=== PATIENT | female | born 1965 | race Caucasian/White ===

== ENCOUNTER 2019-10-14 14:50 | Emergency (ER) | payer BC ==
--- OUTSIDE RECORDS SUMMARY | 2019-10-14 15:11 | XMS REPORT | Continuity of Care Document ---
:1965 External Reference #:[id number] Author Name Bennie Isaac PA (transmitted by agent of provider Skip Barragan) Address [address], [address] [place] [address] Care Team Providers Name Role Phone Joshua Brennan MD - Family Medicine Care Team Information Humidifier Operator [phone] Problems Active Problems Provider Date Chest pain Negin Pickens ANP Onset: 10/07/2011 Mixed hyperlipidemia Negin Pickens ANP Onset: 10/07/2011 [place] Vikram Ruvalcaba M.D. Onset: 10/26/2013 Obstructive sleep apnea syndrome Negin Pickens ANP Onset: 05/12/2016 Bradycardia, unspecified Negin Pickens ANP Onset: 05/12/2016 Essential hypertension Negin Pickens ANP Onset: 05/12/2016 Social History Type Date Description Comments Sex Unknown Cigarette Use Denies Tobacco Use Tobacco Use Start: Unknown Never Smoked Cigarettes Smoking Status Reviewed: 08/29/19 Never Smoked Cigarettes ETOH Use Rarely consumes alcohol Exercise Type/Frequency Does not exercise Allergies, Adverse Reactions, Alerts Active Allergies Reaction Severity Comments Date Sulfa Drugs 10/07/2011 Medications Active Medications SIG Qnty Indications Ordering Provider Date Aspirin Ec Lo-Dose po qd Unknown 81mg Tablets Atorvastatin Calcium 1 po qd 30tabs Unknown 20mg Tablets Nature Made D3 1 po qd 60caps Unknown 1000Iu Capsules Escitalopram Oxalate 1 po qd Joshua Brennan MD 10mg Tablets Irbesartan-Hydrochlorothiaz 1 daily Joshua Brennan MD bernie 150-12.5mg Tablets Immunizations Description No Information Available Vital Signs Date Vital Result Comment 08/29/2019 3:36pm BP Systolic Sitting Right Arm 128 mmHg BP Diastolic Sitting Right Arm 64 mmHg Heart Rate 72 /min Respiratory Rate 18 /min Height 62 inches 5'2" Weight 175.00 lb BMI (Body Mass Index) 32.0 kg/m2 BSA (Body Surface Area) 1.81 m2 [place] body weight in kilograms 50 kg O2 % BldC Oximetry 96 % Ora 03/07/2019 3:35pm BP Systolic 117 mmHg BP Diastolic 80 mmHg Heart Rate 80 /min Respiratory Rate 18 /min Height 62 inches 5'2" Weight 174.00 lb BMI (Body Mass Index) 31.8 kg/m2 BSA (Body Surface Area) 1.80 m2 [place] body weight in kilograms 50 kg O2 % BldC Oximetry 96 % Results Test Acquired Date Facility Test Result H/L Range Note Basic Metabolic 08/29/2019 [facility] Glucose 88 mg/dL Normal 74-106 1 [address] [place], [place] [id number] [phone] BUN 18 mg/dL Normal 7-18 Creatinine 0.9 mg/dL Normal 0.6-1.3 Glom Filtration Rate, Estimate >60 mL/min >60 If >60 mL/min >60 2 BUN/Creat 20.0 ratio Sodium 136 mmol/L Normal 136-145 Potassium 3.5 mmol/L Normal 3.5-5.1 Chloride 103 mmol/L Normal 98-107 Carbon Dioxide 31 mmol/L Normal 21-32 Anion Gap 2 mEq/L Low 8-16 Calcium 9.5 mg/dL Normal 8.5-10.1 Laboratory test 08/29/2019 [facility] Magnesium 2.0 mg/dL Normal 1.6-2.6 [address] [place] [address] [phone] 1 E87.6 2 Note: Persistent reduction for 3 months or more in an eGFR <60 mL/min/1.73 m2 defines CKD. Patients with eGFR values >/=60 mL/min/1.73 m2 may also have CKD if evidence of persistent proteinuria is present. The original MDRD equation for estimated GFR is not valid for patients less than 18 years of age. Additional information may be found at www.[facility].org. Procedures Date Code Description Status 03/07/2019 81428 EKG-Tracing And Report Completed 10/18/2012 [id number] Mammogram Completed 10/18/2012 949902545 Bone Mineral Density Test Completed 10/18/2012 [id number] Colonoscopy Completed Medical Devices Description No Information Available Encounters Type Date Location Provider Dx Diagnosis Office Visit 08/29/2019 Cardiology Office Bennie Isaac I10 Essential ( primary) 3:30p [facility] [place] hypertension E78.2 Mixed hyperlipidemia R00.1 Bradycardia, unspecified E87.6 Hypokalemia Office Visit 03/07/2019 3:30p Cardiology Office Keren Ingram I49.5 Sick sinus MD syndrome I10 Essential (primary) hypertension E78.2 Mixed hyperlipidemia R07.2 Precordial pain Assessments Date Code Description Provider 08/29/2019 I10 Essential (primary) hypertension Bennie Isaac PA 08/29/2019 E78.2 Mixed hyperlipidemia Bennie Isaac PA 08/29/2019 R00.1 Bradycardia, unspecified Bennie Isaac, PA 08/29/2019 E87.6 Hypokalemia Bennie Isaac PA 03/07/2019 I49.5 Sick sinus syndrome Keren Ingram MD 03/07/2019 I10 Essential (primary) hypertension Keren Ingram MD 03/07/2019 E78.2 Mixed hyperlipidemia Keren Ingram MD 03/07/2019 R07.2 Precordial pain Keren Ingram MD Plan of Treatment Future Appointment(s):02/26/2020 3:30 pm - Bennie Isaac PA at [facility]iology [id number]/29/2019 - Bennie Isaac, PAI10 Essential (primary) hypertensionComments:BP goal is <130/80 mmHg. No changes.E78.2 Mixed hyperlipidemiaComments:Followed by PCP.R00.1 Bradycardia, unspecifiedComments: Monitor.E87.6 HypokalemiaComments:Will repeat her level.AllFollow up:6 months - call for results of [facility] Functional Status Functional Condition Comment Date Status Independent with all ADL's Active Glasses Active Independent with all IADL's Active Mental Status Description No Information Available Referrals Description No Information Available
--- NOTE | 2019-10-14 15:43 | UC ---
Respiratory Complaint HPI - HPI Summary HPI Summary: 2 wks of cough w/ low grade fever. Grandson also sick. did not get flu shot this year. nothing makes it better/worse. - History of Current Complaint Chief Complaint: UCGeneralIllness Stated Complaint: COUGH, FEVER Time Seen by Provider: 10/14/19 15:30 Hx Last Menstrual Period: NOW Aggravating Factors: Nothing Alleviating Factors: Nothing - Allergies/Home Medications Allergies/Adverse Reactions: Allergies Allergy/AdvReac Type Severity Reaction Status Date / Time sulfa drugs Allergy Intermediate Rash Uncoded 10/14/19 15:50 Home Medications: Home Medications Escitalopram * [Lexapro 10 mg (NF)] 10 mg PO DAILY 10/14/19 [History Confirmed 10/14/19] Irbesartan/Hydrochlorothiazide [Irbesartan/Hydrochlorothi 150-12.5 mg] 1 tab PO DAILY 10/14/19 [History Confirmed 10/14/19] PMH/Surg Hx/FS Hx/Imm Hx Previously Healthy: Yes Cardiovascular History: Cardiac Disease, Hypertension - Surgical History Surgical History: Yes Surgery Procedure, Year, and Place: TONSILLECTOMY - Family History Known Family History: Positive: Non-Contributory - Social History Substance Use Type: None Review of Systems All Other Systems Reviewed And Are Negative: Yes Constitutional: Positive: Fever, Fatigue. Negative: Chills ENT: Positive: Sinus Congestion. Negative: Sore Throat Respiratory: Positive: Cough Cardiovascular: Negative: Chest Pain Gastrointestinal: Negative: Vomiting, Diarrhea, Nausea Neurological: Negative: Headache Physical Exam Triage Information Reviewed: Yes Appearance: Well-Appearing Vital Signs Reviewed: Yes Eyes: Positive: Conjunctiva Clear ENT: Positive: Pharyngeal erythema, TMs normal, Uvula midline Neck: Positive: Supple, Nontender, No Lymphadenopathy Respiratory Exam: Normal Cardiovascular Exam: Normal Neurological: Positive: Alert Skin: Negative: Rashes Respiratory Course/Dx - Course Course Of Treatment: 2 wks of URI symptoms in a pt that was not vaccinated against the flu. Today she is + for influenza and given her age we gave tamiflu it may not help symptoms. vitals are good. Exam is essentially unremarkable. - Differential Dx/Diagnosis Differential Diagnosis/HQI/PQRI: Bronchitis, Influenza, Lower Resp Infection, Other Provider Diagnosis: Influenza Discharge ED - Sign-Out/Discharge Documenting (check all that apply): Patient Departure All imaging exams completed and their final reports reviewed: No Studies - Discharge Plan Condition: Good Disposition: HOME Prescriptions: Oseltamivir CAP* [Tamiflu CAP*] 75 mg PO BID 5 Days #10 cap Patient Education Materials: Influenza (ED) Referrals: Joshua Brennan MD [Primary Care Provider] - Additional Instructions: iF WORSENING PLEASE RETURN. - Billing Disposition and Condition Condition: GOOD Disposition: Home - Attestation Statements Provider Attestation: Per institutional requirements, I have reviewed the chart, however, I was not consulted specifically or made aware of this patient by the midlevel provider. I did not personally evaluate, interact with , or disposition this patient.
[2019-10-14 15:49] VITALS: BP 129/82
[2019-10-14 16:34] LABS: Influenza B Molecular POSITIVE (Negative)
== END 2019-10-14 16:57 | disposition home or self-care (01) ==
LOC: UCCORT 14:50
DX: J11.1 Influenza due to unidentified influenza virus with other respiratory manifestations (principal); I10 Essential (primary) hypertension; Z79.899 Other long term (current) drug therapy; Z88.2 Allergy status to sulfonamides
CPT/HCPCS: 99202; G0463